=== PATIENT | male | born 1980 | race Caucasian/White ===

== ENCOUNTER 2018-06-18 12:57 | Emergency (ER) | payer OTHER, MEDICAID ==
[~2018-06-18] VITALS: Ht 175.3 cm; Wt 99.0 kg
[2018-06-18 13:01] VITALS: Ht 175.3 cm; Wt 99.0 kg
--- NOTE | 2018-06-18 13:21 | ERD ---
ER Documentation Chief Complaint Chief Complaint biba; gf called paramedics for evaluation- not in resp distress HPI Patient is a 38-year-old male with alcohol abuse who presents saying "I drink too much". He was brought in by ambulance. He said that he was sober for a period but then started drinking last night and today. He has no complaints at this time and does not want to be in the hospital any longer. He said that his girlfriend can come and pick him up. ROS All systems reviewed and are negative except as per history of present illness. PMhx/Soc Positive for alcohol abuse FmHx Family History: No diabetes Physical Exam Vitals Vital Signs Date Temp Pulse Resp B/P (MAP) Pulse Ox O2 O2 Flow FiO2 Time Delivery Rate 06/18/18 98.6 80 20 138/72 97 13:01 (94) Physical Exam Const: No acute distress Head: Atraumatic Eyes: Normal Conjunctiva ENT: Normal External Ears, Nose and Mouth. Neck: Full range of motion. No meningismus. Resp: Clear to auscultation bilaterally Cardio: Regular rate and rhythm, no murmurs Abd: Soft, non tender, non distended. Normal bowel sounds Skin: No petechiae or rashes Back: No midline or flank tenderness Ext: No cyanosis, or edema Neur: Awake and intoxicated but answering all questions appropriately Procedures/MDM Patient is a 38-year-old male with alcohol abuse who presents with alcohol intoxication. I do not think he requires further work-up or admission to the [facility] at this time. The patient will be discharged with a list of the local outpatient detox facilities. The patient will need to follow-up with his primary doctor as well. He can return for any worsening symptoms. Departure Diagnosis: Primary Impression: Alcoholic intoxication Complication of substance-induced condition: uncomplicated Qualified Codes: F10.920 - Alcohol use, unspecified with intoxication, uncomplicated Condition: Fair Patient Instructions: Alcohol Intoxication Referrals: COMM[facility] YOU HAVE RECEIVED A MEDICAL SCREENING EXAM AND THE RESULTS INDICATE THAT YOU DO NOT HAVE A CONDITION THAT REQUIRES URGENT TREATMENT IN THE EMERGENCY DEPARTMENT. FURTHER EVALUATION AND TREATMENT OF YOUR CONDITION CAN WAIT UNTIL YOU ARE SEEN IN YOUR DOCTORS OFFICE WITHIN THE NEXT 1-2 DAYS. IT IS YOUR RESPONSIBILITY TO MAKE AN APPOINTMENT FOR FOLOW-UP CARE. IF YOU HAVE A PRIMARY DOCTOR --you should call your primary doctor and schedule an appointment IF YOU DO NOT HAVE A PRIMARY DOCTOR YOU CAN CALL OUR PHYSICIAN REFERRAL HOTLINE AT IF YOU CAN NOT AFFORD TO SEE A PHYSICIAN YOU CAN CHOSE FROM THE FOLLOWING [facility] [address] [facility] [address] [facility] [address] [facility] [address] [facility] [address] [facility] [facility]. [address] Additional Instructions: Call your primary care doctor TOMORROW for an appointment during the next 1 WEEK.Tell the secretary of state that you were referred from this facility.See the doctor sooner or return here if your condition worsens before your appointment time. ROSE MCNAIR MD June 18, 2018 13:21
--- NOTE | 2018-06-18 14:57 | PSY ---
Date/Time of Note Date/Time of Note DATE: 06/18/18 TIME: 15:52 Psychiatric Subjective Eval Consent Pt consented to telemedicine: Yes Subjective Evaluation Patient location: emergency Chief Complaint: biba; gf called paramedics for evaluation- not in resp distress Reason for consult: SUICIDIAL IDEATION History of present illness the patient presented to the hospital intoxicated. his girlfriend found him unconscious at home. he apparently drank significant amounts of alcohol. apparently, while intoxicated, the patient was holding a knife to his chest and saying that he was going to hurt himself. he denies the intent of hurting himself today. however, the patient appears still slightly intoxicated. he is very drowsy and had difficulties with expressing himself. mild slurring is still present. no evidence of psychosis. no evidence of delirium at this time. Past psychiatric history no previous hospitalizations. the patient is not taking any medications. Hospitalization: no Family History negative Medical history Problems Medical Problems: (1) Alcoholic intoxication Status: Acute Substance Abuse Substance abuse history: Yes Prior substance abuse treatmen: Yes Social History Marital status: single DPA/Conservatorship: No Occupation/[employer] [facility]: unemployed at this time Psychiatric Objective Eval Review of Systems: Review of Systems: Not Applicable Physical Examination: Physical Examination: Not Applicable Mental Status Examination: Appearance: Disheveled Eye Contact: Poor Psychomotor Activity: Slow Behavior: Cooperative Speech: Slurred AFFECT: Constricted Mood: Appropriate/Full Though Process: Linear Thought Content: Normal Suicidal: No Homicidal: No On 72 hour hold: Yes Orientation: x4 Cognition: Drowsy Insight: Impared Judgement: Impared Attention Span: Distractible Laboratory Results Laboratory Tests Test 06/18/18 13:39 White Blood Count 7.9 10^3/ul Red Blood Count 4.62 10^6/ul Hemoglobin 15.3 g/dl Hematocrit 45.5 % Mean Corpuscular Volume 98.5 fl Mean Corpuscular Hemoglobin 33.1 pg Mean Corpuscular Hemoglobin Concent 33.6 g/dl Red Cell Distribution Width 15.7 % Platelet Count 217 10^3/UL Mean Platelet Volume 8.4 fl Immature Granulocytes % 0.500 % Neutrophils % 49.1 % Lymphocytes % 42.9 % Monocytes % 5.7 % Eosinophils % 0.8 % Basophils % 1.0 % Nucleated Red Blood Cells % 0.0 /100WBC Immature Granulocytes # 0.040 10^3/ul Neutrophils # 3.9 10^3/ul Lymphocytes # 3.4 10^3/ul Monocytes # 0.5 10^3/ul Eosinophils # 0.1 10^3/ul Basophils # 0.1 10^3/ul Nucleated Red Blood Cells # 0.0 10^3/ul Sodium Level 153 mmol/L Potassium Level 4.1 mmol/L Chloride Level 111 mmol/L Carbon Dioxide Level 30 mmol/L Anion Gap 12 Blood Urea Nitrogen 10 mg/dl Creatinine 0.73 mg/dl Est Glomerular Filtrat Rate mL/min > 60 mL/min Glucose Level 113 mg/dl Calcium Level 9.0 mg/dl Total Bilirubin 0.1 mg/dl Direct Bilirubin 0.00 mg/dl Indirect Bilirubin 0.1 mg/dl Aspartate Amino Transf (AST/SGOT) 79 IU/L Alanine Aminotransferase (ALT/SGPT) 102 IU/L Alkaline Phosphatase 177 IU/L Total Protein 8.2 g/dl Albumin 4.6 g/dl Globulin 3.60 g/dl Albumin/Globulin Ratio 1.27 Salicylates Level < 1.0 mg/dl Acetaminophen Level < 10.0 ug/ml Ethyl Alcohol Level 487.0 mg/dl Assessment and Plan Assessment/Diagnosis Diagnosis alcohol dependence. alcohol intoxication. alcohol induced mood disorder, depressed. Recommendation/Plan Medication Management there is currently not evidence that the patient is an immediate danger to self or others. however, i would recommend reevaluating the patient in 24 hours when he is fully alert. he is still slightly intoxicated. i do not believe that the patient will need psychiatric hospitalization. however, the patient will likely needs detox. he has a history of withdrawals and withdrawal seizures. Discharge Disposition: Community Legal Status: Continue involuntary hold NEVILLE MORRISSEY June 18, 2018 14:57
[2018-06-18 19:18] VITALS: BP 112/81; PULSE 109; RESP 16
== END 2018-06-18 19:22 | disposition home or self-care (01) ==
LOC: E/R 12:57
DX: F10.920 Alcohol use, unspecified with intoxication, uncomplicated (principal); R40.2142 Coma scale, eyes open, spontaneous, at arrival to emergency department; R40.2242 Coma scale, best verbal response, confused conversation, at arrival to emergency department; R40.2362 Coma scale, best motor response, obeys commands, at arrival to emergency department
CPT/HCPCS: 36415; 80053; 80307; 85025; 99283